=== PATIENT | female | born 2000 | race Caucasian/White ===

== ENCOUNTER 2021-04-03 12:34 | Inpatient (IN) | payer SELFPAY ==
[~2021-04-03] VITALS: Ht 167.6 cm; Wt 71.9 kg
[2021-04-03] MEDS ORDERED: LEXA1TAB2 PO (12:46)
[2021-04-03] MEDS ORDERED: CLON0.5T17 PO (12:46)
[2021-04-03] MEDS ORDERED: LITH300C PO (12:46)
[2021-04-03] MEDS ORDERED: CLON0.5T2 PO (14:04)
[2021-04-03] MEDS ORDERED: clonazePAM 0.5 MG TAB PO ONE (14:10)
[2021-04-03 14:48] LABS: HEMATOCRIT 38.9 % (36.0-47.0); HEMOGLOBIN 12.9 g/dl (12.0-15.5); MEAN CORPUSCULAR HEMOGLOBIN 31.1 pg (27.0-33.0); MEAN CORPUSCULAR HGB CONC 33.2 g/dl (32.0-36.5); MEAN CORPUSCULAR VOLUME 93.7 fl (80.0-96.0); PLATELET COUNT, AUTOMATED 393 10^3/uL (150-450); RED BLOOD COUNT 4.15 10^6/uL (4.00-5.40); WHITE BLOOD COUNT 9.5 10^3/uL (4.0-10.0)
[2021-04-03 15:13] LABS: AMPHETAMINES LEVEL URINE NEGATIVE (NEGATIVE); BARBITURATES URINE NEGATIVE (NEGATIVE); BENZODIAZEPINES URINE POSITIVE (NEGATIVE); CANNABINOIDS URINE NEGATIVE (NEGATIVE); COCAINE METABOLITE URINE NEGATIVE (NEGATIVE); METHADONE URINE NEGATIVE (NEGATIVE); OPIATES URINE NEGATIVE (NEGATIVE); PHENCYCLIDINE URINE NEGATIVE (NEGATIVE)
[2021-04-03 15:17] LABS: HCG, SERUM QUALITATIVE NEGATIVE (NEGATIVE)
[2021-04-03 15:24] LABS: ACETAMINOPHEN LEVEL < 2.0 UG/ML (10.0-30.0); ALBUMIN 4.4 GM/DL (3.2-5.2); ALT/SGPT 23 U/L (12-78); BILIRUBIN,DIRECT 0.1 MG/DL (0.0-0.2); BILIRUBIN,TOTAL 0.6 MG/DL (0.2-1.0); BLOOD UREA NITROGEN 8 MG/DL (7-18); CALCIUM LEVEL 9.6 MG/DL (8.5-10.1); CARBON DIOXIDE LEVEL 24 MEQ/L (21-32); CHLORIDE LEVEL 108 MEQ/L (98-107); CREATININE FOR GFR 0.61 MG/DL (0.55-1.30); ETHYL ALCOHOL (ETHANOL) < 0.003 % (0.000-0.010); GLUCOSE, FASTING 93 MG/DL (70-100); LITHIUM LEVEL 0.64 MEQ/L (0.60-1.20); POTASSIUM SERUM 4.2 MEQ/L (3.5-5.1); SALICYLATE LEVEL < 1.7 MG/DL (5.0-30.0); SODIUM LEVEL 138 MEQ/L (136-145); THYROID STIMULATING HORMONE 0.595 uIU/ML (0.463-3.98); TOTAL PROTEIN 7.9 GM/DL (6.4-8.2)
[2021-04-03] MEDS ORDERED: ESCITALOPRAM OXALATE 10 MG TAB (LEXAPRO) PO ONE (15:35)
[2021-04-03] MEDS ORDERED: LITHIUM CARBONATE 300 MG CAP PO ONE (15:35)
[2021-04-03] MEDS ORDERED: LORazepam 2 MG/ML VIAL IM STA ×2 (18:41→22:31)
[2021-04-04] MEDS ORDERED: LORazepam 2 MG TAB PO STA (00:56)
[2021-04-04] MEDS ORDERED: diphenhydrAMINE 25MG CAP PO ONE (01:00)
[2021-04-04] MEDS ORDERED: OLANZapine INTRAMUSCULAR 10MG VIAL IM ONE (02:45)
[2021-04-04] MEDS ORDERED: ESCITALOPRAM OXALATE 10 MG TAB (LEXAPRO) PO ONE (09:30)
[2021-04-04] MEDS ORDERED: clonazePAM 0.5 MG TAB PO ONE (09:30)
[2021-04-04] MEDS ORDERED: LITHIUM CARBONATE 300 MG CAP PO ONE (09:30)
[2021-04-04 16:05] LABS: RSV AMPLIFICATION NEGATIVE (NEGATIVE)
[2021-04-04] MEDS ORDERED: MAALOX 30 ML SUSP *UDC PO PRN (17:00)
[2021-04-04] MEDS ORDERED: MOM 30ML SUSPENSION UDC PO PRN (17:00)
[2021-04-04] MEDS: clonazePAM 0.5 MG TAB PO PRN (18:55)
[2021-04-04] MEDS: OLANZapine ORAL DISINTEGRATING TAB 5MG PO PRN (19:16)
[2021-04-04] MEDS: traZODone 50 MG TAB PO PRN (20:47)
[2021-04-04] MEDS ORDERED: risperiDONE 2 MG TAB PO SCH (21:00)
[2021-04-05] MEDS: clonazePAM 0.5 MG TAB PO PRN ×3 (03:53→19:25)
[2021-04-05] MEDS: OLANZapine ORAL DISINTEGRATING TAB 5MG PO PRN ×3 (03:53→22:08)
--- NOTE | 2021-04-05 09:19 | HPE ---
HISTORY AND PHYSICAL DATE OF ADMISSION: 04/04/2021 The patient was admitted to the inpatient mental health unit ([facility]) with a manic episode. PAST MEDICAL HISTORY: Essentially benign except for psychiatric problems. MEDICATIONS: Home medicines are in the record, they are all psychiatric medications. ALLERGIES: SEROQUEL. REVIEW OF SYSTEMS: It sounds like she has chronic abdominal pain, otherwise no cardiovascular or pulmonary symptoms. PHYSICAL EXAMINATION: Vital signs per flow sheet. She has manic, pressured speech, easily distractible. Exam occurred in her room, chaperoned by Margo, the nurse. HEENT: Grossly unremarkable, thyroid nonpalpable. Lungs: Clear. Heart: Regular, without murmur. Abdomen: Mildly tender without guarding, rebound, or referred pain. Distraction led to reduced complaints of abdominal pain on palpation. Extremities: No clubbing, cyanosis, or edema. Neurologic exam: Normal cranial nerves, muscle strength, reflexes, sensation, and gait. LABORATORIES: CBC, CMP, TSH unremarkable. Toxicology screen was positive for benzodiazepines. IMPRESSION: Patient has no nonpsychiatric conditions that would require ongoing hospitalist attention. Should any medical problems develop, please feel free to contact the covering hospitalist.
[2021-04-05] MEDS: LITHIUM CARBONATE 300 MG CAP PO SCH (09:36)
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
[2021-04-05] MEDS: haloperidoL 5 MG TAB PO SCH ×2 (15:51→21:40)
[2021-04-05 16:10] VITALS: BP 131/74
[2021-04-05] MEDS: traZODone 50 MG TAB PO PRN (22:08)
[2021-04-06] MEDS: LITHIUM CARBONATE 300 MG CAP PO SCH (09:08)
[2021-04-06] MEDS: haloperidoL 5 MG TAB PO SCH ×3 (09:08→20:40)
[2021-04-06] MEDS ORDERED: BENZTROPINE 0.5 MG TAB PO ONE (09:30)
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
[2021-04-06] MEDS: clonazePAM 0.5 MG TAB PO PRN ×2 (10:40→21:20)
[2021-04-06] MEDS: ACETAMINOPHEN TAB 650MG DOSE (2X325MG) PO PRN ×2 (15:23→22:14)
[2021-04-06 16:13] VITALS: BP 122/79
[2021-04-06] MEDS: traZODone 50 MG TAB PO PRN (22:44)
[2021-04-07 06:25] VITALS: BP 131/90
[2021-04-07] MEDS: clonazePAM 0.5 MG TAB PO PRN ×2 (07:52→20:03)
[2021-04-07] MEDS: LITHIUM CARBONATE 300 MG CAP PO SCH ×2 (08:04→22:14)
[2021-04-07] MEDS: haloperidoL 5 MG TAB PO SCH ×3 (08:05→22:14)
[2021-04-07 08:38] LABS: CHOLESTEROL RISK RATIO 2.372 (<5); LITHIUM LEVEL 0.32 MEQ/L (0.60-1.20)
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
[2021-04-07 16:14] VITALS: BP 132/64
[2021-04-07] MEDS: OLANZapine ORAL DISINTEGRATING TAB 5MG PO PRN (20:19)
[2021-04-07] MEDS: BENZTROPINE 0.5 MG TAB PO PRN (22:14)
[2021-04-07] MEDS: ACETAMINOPHEN TAB 650MG DOSE (2X325MG) PO PRN (22:53)
[2021-04-07] MEDS: traZODone 50 MG TAB PO PRN (23:40)
[2021-04-08 06:54] VITALS: BP 121/71
[2021-04-08] MEDS: haloperidoL 5 MG TAB PO SCH ×3 (08:12→20:25)
[2021-04-08] MEDS: LITHIUM CARBONATE 300 MG CAP PO SCH ×2 (08:12→20:25)
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
[2021-04-08] MEDS: ACETAMINOPHEN TAB 650MG DOSE (2X325MG) PO PRN (12:12)
[2021-04-08 16:27] VITALS: BP 122/64
[2021-04-08] MEDS: clonazePAM 0.5 MG TAB PO PRN (18:33)
[2021-04-08] MEDS: OLANZapine ORAL DISINTEGRATING TAB 5MG PO PRN (21:30)
[2021-04-08] MEDS: traZODone 50 MG TAB PO PRN (21:30)
[2021-04-09 06:23] VITALS: BP 105/56
[2021-04-09] MEDS: LITHIUM CARBONATE 300 MG CAP PO SCH ×2 (08:34→20:15)
[2021-04-09] MEDS: haloperidoL 5 MG TAB PO SCH ×3 (08:34→20:15)
[2021-04-09] MEDS: ACETAMINOPHEN TAB 650MG DOSE (2X325MG) PO PRN (08:35)
[2021-04-09] MEDS: BENZTROPINE 0.5 MG TAB PO PRN (11:16)
[2021-04-09] MEDS: clonazePAM 0.5 MG TAB PO PRN ×2 (12:36→20:33)
[2021-04-09 16:11] VITALS: BP 129/74
[2021-04-09] MEDS: traZODone 50 MG TAB PO PRN (20:57)
[2021-04-10 06:30] VITALS: BP 94/52
[2021-04-10] MEDS: haloperidoL 5 MG TAB PO SCH ×3 (08:27→20:40)
[2021-04-10] MEDS: LITHIUM CARBONATE 300 MG CAP PO SCH ×2 (08:27→20:40)
[2021-04-10] MEDS: BENZTROPINE 0.5 MG TAB PO PRN ×2 (08:28→18:58)
[2021-04-10] MEDS: ACETAMINOPHEN TAB 650MG DOSE (2X325MG) PO PRN ×2 (08:33→20:40)
[2021-04-10] MEDS: clonazePAM 0.5 MG TAB PO PRN (11:55)
[2021-04-10 16:21] VITALS: BP 110/67
[2021-04-10] MEDS: traZODone 50 MG TAB PO PRN (20:40)
[2021-04-11 06:43] VITALS: BP 108/62
[2021-04-11] MEDS: haloperidoL 5 MG TAB PO SCH ×3 (08:11→20:02)
[2021-04-11] MEDS: LITHIUM CARBONATE 300 MG CAP PO SCH ×2 (08:11→20:03)
[2021-04-11] MEDS: BENZTROPINE 0.5 MG TAB PO PRN (08:12)
[2021-04-11] MEDS: clonazePAM 0.5 MG TAB PO PRN (10:11)
[2021-04-11 19:19] VITALS: BP 129/81
[2021-04-11] MEDS: traZODone 50 MG TAB PO PRN (20:02)
[2021-04-12 06:18] VITALS: BP 118/62
[2021-04-12] MEDS: haloperidoL 5 MG TAB PO SCH (08:05)
[2021-04-12] MEDS: LITHIUM CARBONATE 300 MG CAP PO SCH (08:05)
[2021-04-12] MEDS: BENZTROPINE 0.5 MG TAB PO PRN (08:06)
[2021-04-12] MEDS ORDERED: HALO5TA PO (09:28)
[2021-04-12] MEDS ORDERED: LITH300C PO (09:28)
[2021-04-12] MEDS ORDERED: BENZ0.5T23 PO (09:28)
[2021-04-12] MEDS ORDERED: CLON0.5T2 PO (09:28)
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
== END 2021-04-12 11:30 | disposition home or self-care (01) | DRG 753 ==
LOC: M ED 12:34 → M ED INP 04-04 17:00 → M PSY 04-04 18:35
PROVIDERS: ADMIT Psychiatry & Neurology Psychiatry; ATTEND Psychiatry & Neurology Psychiatry
DX: F31.10 Bipolar disorder, current episode manic without psychotic features, unspecified (principal); R10.9 Unspecified abdominal pain; Z20.822 Contact with and (suspected) exposure to COVID-19; Z88.8 Allergy status to other drugs, medicaments and biological substances; Z79.899 Other long term (current) drug therapy